=== PATIENT | female | born 1960 | race African-American/Black ===

== ENCOUNTER 2017-09-15 08:31 | Emergency (ER) | payer MEDICAID ==
[~2017-09-15] VITALS: Ht 167.6 cm; Wt 75.0 kg
[2017-09-15] MEDS ORDERED: KETOROLAC 60MG/2ML VIAL IM ONE (10:15)
[2017-09-15 11:39] VITALS: BP 166/100
== END 2017-09-15 11:40 | disposition home or self-care (01) ==
LOC: ER 10:55
DX: M25.512 Pain in left shoulder (principal); Z90.49 Acquired absence of other specified parts of digestive tract
CPT/HCPCS: 29105; 73030; 96372; 99284; J1885; L3670